=== PATIENT | male | born 1940 | race Caucasian/White ===

== ENCOUNTER → 2017-05-15 | Outpatient (CLI) | payer MEDICARE ==
[~2017-05-15] MED LIST: ALBU18HF INH; ALPR0.5T10 SL; ASPI-496 PO; ASPI-621 PO; CHOL5000 PO; FLAX1000 PO; LISI1TAB5 PO; LISI40TA PO; MECL-76 PO; MV-M1TAB35 PO; OM-31CAP4 PO; OMEP-110 PO; PANT40TA3 PO; TIOT18CA INH; bp med PO
[2017-05-15 13:07] LABS: HEMOGLOBIN 15.4 g/dL (13.7-18.0); WHITE BLOOD COUNT 12.5 x10^3/uL (3.4-10)
[2017-05-15 13:15] LABS: ASPARTATE AMINO TRANSFERASE 18 U/L (15-37); BLOOD UREA NITROGEN 22 mg/dL (7-18)
== END | disposition home or self-care (01) ==
LOC: STAR 12:05
PROVIDERS: ATTEND Surgery
DX: Z01.818 Encounter for other preprocedural examination (principal); R94.31 Abnormal electrocardiogram [ECG] [EKG]; I65.21 Occlusion and stenosis of right carotid artery; I12.9 Hypertensive chronic kidney disease with stage 1 through stage 4 chronic kidney disease, or unspecified chronic kidney disease; E11.22 Type 2 diabetes mellitus with diabetic chronic kidney disease; N18.2 Chronic kidney disease, stage 2 (mild); E78.5 Hyperlipidemia, unspecified; J44.9 Chronic obstructive pulmonary disease, unspecified; K21.9 Gastro-esophageal reflux disease without esophagitis
CPT/HCPCS: 36415; 80053; 85025; 93005

== ENCOUNTER → 2018-02-21 | Outpatient (CLI) | payer MEDICARE ==
[~2018-02-21] MED LIST changes: +HYDR-3240 PO
== END | disposition home or self-care (01) ==
LOC: CVU 08:27
PROVIDERS: ATTEND Surgery
DX: I65.23 Occlusion and stenosis of bilateral carotid arteries (principal); I10 Essential (primary) hypertension; Z87.891 Personal history of nicotine dependence
CPT/HCPCS: 93880

== ENCOUNTER → 2018-05-22 | Outpatient (CLI) | payer MEDICARE ==
[~2018-05-22] MED LIST changes: +HYDR-3307 PO
[2018-05-22 09:27] LABS: BASOPHILS # (AUTO) 0.02 x10^3/uL (0-0.1); BASOPHILS % (AUTO) 0 % (0-1); EOSINOPHILS # (AUTO) 0.57 x10^3/uL (0-0.4); EOSINOPHILS % (AUTO) 6 % (1-7); LYMPHOCYTES # (AUTO) 1.41 x10^3/uL (1-3.4); LYMPHOCYTES % (AUTO) 16 % (22-44); MD NO; MEAN CORPUSCULAR HEMOGLOBIN 29.2 pg (27.5-34.5); MEAN CORPUSCULAR HGB CONC 33.2 g/dL (33.2-36.2); MEAN CORPUSCULAR VOLUME 87.8 fL (81-97); MONOCYTES # (AUTO) 0.96 x10^3/uL (0.2-0.8); MONOCYTES % (AUTO) 11 % (2-9); NEUTROPHILS # (AUTO) 6.08 x10^3/uL (1.8-6.8); NEUTROPHILS % (AUTO) 67 % (42-75); PLATELET COUNT 378 x10^3/uL (130-400); RED BLOOD COUNT 5.26 x10^6/uL (4.38-5.82); RED CELL DISTRIBUTION WIDTH 13.9 % (9.4-14.8)
[2018-05-22 09:35] LABS: INTERNATIONAL NORMALIZED RATIO 1.02 (0.93-1.1); PROTHROMBIN TIME 10.5 Seconds (9.6-11.5)
[2018-05-22 09:36] LABS: ALANINE AMINOTRANSFERASE 28 U/L (12-78); ALBUMIN 2.9 g/dL (3.4-5.0); ANION GAP 6 mmol/L (5-15); CALCIUM 8.9 mg/dL (8.5-10.1); CHLORIDE 103 mmol/L (98-107); CREATININE 1.25 mg/dL (0.7-1.3)
[2018-05-22 09:39] LABS: ALKALINE PHOSPHATASE 79 U/L (45-117); BILIRUBIN,TOTAL 0.4 mg/dL (0.2-1.0)
[2018-05-22 09:42] LABS: MICROSCOPIC INDICATED
[2018-05-22 09:54] LABS: CULTURE INDICATED? NO
== END | disposition home or self-care (01) ==
LOC: STAR 08:24
PROVIDERS: ATTEND Neurological Surgery
DX: Z01.818 Encounter for other preprocedural examination (principal); I45.10 Unspecified right bundle-branch block; I44.4 Left anterior fascicular block; M50.30 Other cervical disc degeneration, unspecified cervical region; J44.9 Chronic obstructive pulmonary disease, unspecified; Z87.891 Personal history of nicotine dependence
CPT/HCPCS: 36415; 71046; 80053; 81001; 85025; 85610; 85730; 93005

== ENCOUNTER 2018-05-29 07:00 | Inpatient (IN) | payer MEDICARE ==
[~2018-05-29] VITALS: Ht 180.3 cm; Wt 89.3 kg
[~2018-05-29 07:00] MED LIST changes: +BACITRACIN 50,000 UNIT ONE; +BUPIVACAINE/PF-EPI 0.5% 1:200K ONE; -FLAX1000 PO; +FLAX10004 PO; +THROMBIN 5,000 UNIT VIAL TP ONE
[2018-05-29] MEDS ORDERED: LACTATED RINGERS 1,000 ML IV SCH (09:28)
[2018-05-29] MEDS ORDERED: FENTANYL PF 250 MCG/5ML ONE (11:54)
[2018-05-29] MEDS ORDERED: PROPOFOL 100 ML ONE (12:01)
[2018-05-29] MEDS ORDERED: PHENYLEPHRINE 10 MG/ML ONE ×2 (12:48→13:53)
[2018-05-29] MEDS ORDERED: ROCURONIUM 10 MG/ML,10ML ONE (12:48)
[2018-05-29] MEDS ORDERED: DEXAMETHASONE 4 MG/ML, 1ML ONE ×3 (12:59)
[2018-05-29] MEDS ORDERED: CEFAZOLIN 1,000 MG ONE ×2 (13:00)
[2018-05-29] MEDS ORDERED: PROPOFOL 10 MG/ML, 20ML ONE ×2 (13:09→15:13)
[2018-05-29] MEDS ORDERED: HYDROmorphone 1 MG/ML, 1ML IV PRN (13:30)
[2018-05-29] MEDS ORDERED: LABETALOL 5MG/ML, 20ML IV PRN ×2 (13:30→19:00)
[2018-05-29] MEDS ORDERED: ONDANSETRON 2MG/ML, 2ML IV PRN ×2 (13:30→19:00)
[2018-05-29] MEDS ORDERED: PROMETHAZINE 25 MG/ML, 1ML IV PRN (13:30)
[2018-05-29] MEDS ORDERED: DIAZEPAM 5 MG/ML, 2ML IVPush PRN (13:30)
[2018-05-29] MEDS ORDERED: hydrALAzine 20 MG/ML, 1ML IV PRN (13:30)
[2018-05-29] MEDS ORDERED: ACETAMINOPHEN 325 MG TABLET PO PRN (13:30)
[2018-05-29] MEDS ORDERED: OXYcodone 5 MG/5 ML ORAL.SOL UDC PO PRN (13:30)
[2018-05-29] MEDS ORDERED: ONDANSETRON 2MG/ML, 2ML ONE (15:13)
[2018-05-29] MEDS ORDERED: FENTANYL PF 100 MCG/2ML ONE (15:53)
[2018-05-29] MEDS ORDERED: OXYcodone 5 MG/5 ML ORAL.SOL UDC ONE (15:54)
[2018-05-29] MEDS: FENTANYL PF 100 MCG/2ML IV PRN ×2 (15:57→16:13)
[2018-05-29] MEDS ORDERED: DIAZEPAM 5 MG/ML, 2ML IV ONE (18:00)
[2018-05-29] MEDS ORDERED: DOXYCYCLINE 100MG TABLET PO PRN (19:00)
[2018-05-29] MEDS ORDERED: DIPHENHYDRAMINE 50 MG CAPSULE PO PRN (19:00)
[2018-05-29] MEDS ORDERED: MAGNESIUM HYDROXIDE 8%, 30ML UDC PO PRN (19:00)
[2018-05-29] MEDS ORDERED: BISACODYL 10 MG SUPP PR PRN (19:00)
[2018-05-29] MEDS ORDERED: PROMETHAZINE 25 MG/ML, 1ML IM PRN (19:00)
[2018-05-29] MEDS ORDERED: morphine SULFATE 10 MG/ML, 1ML IV PRN (19:00)
[2018-05-29 19:32] VITALS: BP 134/74
[2018-05-29] MEDS ORDERED: ALBUTEROL SULFATE 2.5 MG/3 ML NPPB PRN (20:00)
[2018-05-29] MEDS: IPRATROPIUM 0.5 MG/2.5 ML INHA NPPB SCH (20:04)
[2018-05-29] MEDS: CEFAZOLIN PMX 1GM/50ML 50 ML IVPB SCH (20:43)
[2018-05-29] MEDS: OXYcodone/APAP 5/325MG TABLET PO PRN (20:43)
[2018-05-29] MEDS: D5%-0.9% NACL+KCL 20MEQ 1,000 ML IV SCH (20:55)
[2018-05-29] MEDS ORDERED: ZOLPIDEM 5MG TABLET PO PRN (21:00)
[2018-05-29] MEDS: GENTAMICIN OPHTH SOLN 0.3%,5ML RIGHTEYE SCH (22:09)
[2018-05-30] VITALS: BP 132/75
[2018-05-30] MEDS: METHOCARBAMOL 750 MG TABLET PO PRN ×3 (00:02→20:08)
[2018-05-30] MEDS: OXYcodone/APAP 5/325MG TABLET PO PRN ×6 (00:50→20:07)
[2018-05-30] MEDS: GENTAMICIN OPHTH SOLN 0.3%,5ML RIGHTEYE SCH ×6 (01:25→21:14)
[2018-05-30 03:58] VITALS: BP 130/66
[2018-05-30] MEDS: CEFAZOLIN PMX 1GM/50ML 50 ML IVPB SCH ×3 (05:03→21:14)
[2018-05-30 07:13] VITALS: BP 127/66
[2018-05-30] MEDS: IPRATROPIUM 0.5 MG/2.5 ML INHA NPPB SCH ×3 (07:18→21:20)
[2018-05-30] MEDS: D5%-0.9% NACL+KCL 20MEQ 1,000 ML IV SCH ×2 (08:00→20:30)
[2018-05-30] MEDS: SENNA/DOCUSATE TABLET PO SCH (08:18)
[2018-05-30] MEDS: PANTOPROZOLE 40MG TABLET PO SCH (08:18)
[2018-05-30] MEDS: [UNRECOGNIZED DRUG - OTHER] HOMEINH SCH (08:19)
[2018-05-30] MEDS: HYDROCHLOROTHIAZIDE 12.5 MG CAPSULE PO SCH (08:19)
[2018-05-30] MEDS: LISINOPRIL 10 MG TABLET PO SCH (08:19)
[2018-05-30 13:18] VITALS: BP 158/69
[2018-05-30 21:26] VITALS: BP 117/54
[2018-05-31 00:58] VITALS: BP 109/61
[2018-05-31] MEDS: GENTAMICIN OPHTH SOLN 0.3%,5ML RIGHTEYE SCH ×3 (01:09→08:41)
[2018-05-31] MEDS: OXYcodone/APAP 5/325MG TABLET PO PRN ×3 (01:18→10:22)
[2018-05-31] MEDS: CEFAZOLIN PMX 1GM/50ML 50 ML IVPB SCH (04:50)
[2018-05-31] MEDS: METHOCARBAMOL 750 MG TABLET PO PRN (04:50)
[2018-05-31 06:48] VITALS: BP 124/67
[2018-05-31] MEDS: SENNA/DOCUSATE TABLET PO SCH (08:40)
[2018-05-31] MEDS: PANTOPROZOLE 40MG TABLET PO SCH (08:40)
[2018-05-31] MEDS: HYDROCHLOROTHIAZIDE 12.5 MG CAPSULE PO SCH (08:40)
[2018-05-31] MEDS: [UNRECOGNIZED DRUG - OTHER] HOMEINH SCH (08:41)
[2018-05-31] MEDS: LISINOPRIL 10 MG TABLET PO SCH (08:41)
[2018-05-31] MEDS: D5%-0.9% NACL+KCL 20MEQ 1,000 ML IV SCH (08:41)
[2018-05-31] MEDS: IPRATROPIUM 0.5 MG/2.5 ML INHA NPPB SCH (09:00)
[2018-05-31] MEDS ORDERED: OXYC-302 PO (09:54)
[2018-05-31] MEDS ORDERED: METH750T87 PO (09:56)
[2018-05-31] MEDS ORDERED: DOXY100T PO (09:57)
[2018-05-31 10:25] VITALS: BP 143/72
== END 2018-05-31 10:38 | disposition home or self-care (01) | DRG 471 ==
LOC: ORIP 08:59 → 4NOR 17:27
PROVIDERS: ADMIT Neurological Surgery; ATTEND Neurological Surgery
PROC: 4A11X4G Monitoring of Peripheral Nervous Electrical Activity, Intraoperative, External Approach (ICD-10-PCS; 2018-05-29)
PROC: 0RB30ZZ Excision of Cervical Vertebral Disc, Open Approach (ICD-10-PCS; 2018-05-29)
PROC: 0RG20A0 Fusion of 2 or more Cervical Vertebral Joints with Interbody Fusion Device, Anterior Approach, Anterior Column, Open Approach (ICD-10-PCS; principal; 2018-05-29 12:30)
DX: M48.02 Spinal stenosis, cervical region (principal); J96.21 Acute and chronic respiratory failure with hypoxia; M50.01 Cervical disc disorder with myelopathy, high cervical region; M43.12 Spondylolisthesis, cervical region; M54.12 Radiculopathy, cervical region; R20.2 Paresthesia of skin; F17.210 Nicotine dependence, cigarettes, uncomplicated
CPT/HCPCS: 72040; 94640; C1713; G0378; J0690; J1100; J2405; J2704; J3010; J3360; J7644; C1762; J2270; J2370; J3480; J7120

== ENCOUNTER 2019-04-28 08:04 | Outpatient (CLI) | payer MEDICARE | END 2019-04-28 23:59 | disposition home or self-care (01) | LOC: CVU 08:04 | PROVIDERS: ATTEND Surgery | DX: I65.23 Occlusion and stenosis of bilateral carotid arteries (principal); I73.9 Peripheral vascular disease, unspecified; F17.200 Nicotine dependence, unspecified, uncomplicated | CPT/HCPCS: 93880; 93922 ==